=== PATIENT | female | born 1985 | race American Indian/Alaskan Native ===

== ENCOUNTER 2019-12-11 19:18 | Outpatient (CLI) | payer BC, MEDICAID ==
[2019-12-11 19:41] VITALS: BP 129/71
[2019-12-11] MEDS ORDERED: LACTATED RINGERS 1,000 ML IV ONE (20:16)
[2019-12-11 20:35] LABS: Bacteria,Urine 2+ /HPF (Negative); Bilirubin,Urine NEG (Negative); Blood,Urine NEG (Negative); Color,Urine Yellow (Yellow); Mucus,Urine FEW /HPF; Protein,Urine <15 mg/dL mg/dL (Negative); Urobilinogen,Urine < 2.0 mg/dL (<2.0)
[2019-12-11] MEDS ORDERED: NITROFURANTOIN MONOHYD/M-CRYST 100 MG CAP PO ONE (20:53)
== END 2019-12-11 19:42 | disposition home or self-care (01) ==
LOC: TRG 19:18 → APU 19:26 → TRG 19:42
PROVIDERS: ATTEND Obstetrics & Gynecology
DX: O47.03 False labor before 37 completed weeks of gestation, third trimester (principal); Z3A.34 34 weeks gestation of pregnancy
CPT/HCPCS: 59025; 81001